=== PATIENT | male | born 1990 | race Caucasian/White ===

== ENCOUNTER 2017-09-18 17:58 | Emergency (ER) | payer OTHER ==
[~2017-09-18] VITALS: Ht 167.6 cm; Wt 86.2 kg
[2017-09-18 18:14] VITALS: BP 143/84
--- NOTE | 2017-09-18 18:19 | NUR ---
PT AMBULATES BACK TO THE LOBBY
--- NOTE | 2017-09-18 19:17 | NUR ---
pt ambulated to chair B
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
[2017-09-18 21:00] VITALS: BP 135/77
== END 2017-09-18 21:00 | disposition home or self-care (01) ==
LOC: MED 17:58
DX: S16.1XXA Strain of muscle, fascia and tendon at neck level, initial encounter (principal); V49.9XXA Car occupant (driver) (passenger) injured in unspecified traffic accident, initial encounter; Y93.89 Activity, other specified; Y92.89 Other specified places as the place of occurrence of the external cause; Y99.8 Other external cause status
CPT/HCPCS: 70260; 72040; 99284